=== PATIENT | female | born 1955 | race Caucasian/White ===

== ENCOUNTER → 2018-10-23 | Outpatient (CLI) | payer MEDICARE, OTHER ==
[~2018-10-23] MED LIST: ESC10 PO; ROS10 PO
--- NOTE | 2018-10-24 15:18 | RADIOLOGY IMAGING REPORT ---
FACILITY: [facility] PATIENT NAME: ALETHA TOBAR : [id number] MR: [id number]: [id number] EXAM DATE: [id number] ORDERING PHYSICIAN: TANISHA PEDERSON TECHNOLOGIST: Rosy Rothman PROCEDURE: BILATERAL DIGITAL SCREENING MAMMOGRAM WITH CAD ASSISTED INTERPRETATION & 3D TOMOSYNTHESIS REASON FOR STUDY: Screening FAMILY HISTORY OF BREAST CANCER: Sister BREAST PROCEDURES/TREATMENTS: Fibroadenoma removed > than 10 years ago, breast site not documented COMPARISON: 05/22/17, 03/13/16, 10/12/14, 07/07/13, 05/26/12 VIEWS OBTAINED: Bilateral 2D & 3D full field CC & MLO projections & 2D Left XCC full field view BREAST DENSITY: There are scattered areas of fibroglandular density throughout the breasts. MAMMOGRAM FINDINGS: The parenchymal pattern has remained stable allowing for difference in mammographic technique & patient positioning. There is a nodular density in the deep central Right breast that has remained stable. IMPRESSION: BIRADS 2: Benign finding. \DIAGNOSTIC CATEGORY 2--BENIGN FINDING. RECOMMENDATIONS: ROUTINE MAMMOGRAM AND CLINICAL EVALUATION. Dictated by: Amy Garnett M.D. on 10/23/2018 at 16:54 Transcribed by: NISHANT on 10/24/2018 at 10:45 Approved by: Amy Garnett M.D. on 10/24/2018 at 15:17 [facility]
== END ==
LOC: MAMO 08-21 00:45
PROVIDERS: ATTEND Nurse Practitioner Family
DX: Z12.31 Encounter for screening mammogram for malignant neoplasm of breast (principal); Z80.3 Family history of malignant neoplasm of breast
CPT/HCPCS: 77063; 77067